=== PATIENT | female | born 1990 | race Hispanic/Latino ===

== ENCOUNTER 2022-02-18 15:39 | Emergency (ER) | payer OTHER ==
[~2022-02-18] VITALS: Ht 165.1 cm; Wt 70.3 kg
[2022-02-18 15:49] VITALS: BP 129/70
[2022-02-18] MEDS ORDERED: IOHEXOL 350 MG/ML 100ML INFUS..BTL IV ONE (16:11)
[2022-02-18] MEDS ORDERED: LIDOCAINE HCL MPF 1% 5ML VIAL ONE (16:28)
== END 2022-02-18 17:08 | disposition left against medical advice (07) ==
LOC: EDH 15:39
DX: S81.811A Laceration without foreign body, right lower leg, initial encounter (principal); Z88.0 Allergy status to penicillin; X58.XXXA Exposure to other specified factors, initial encounter; Y93.89 Activity, other specified; Y92.89 Other specified places as the place of occurrence of the external cause; Y99.8 Other external cause status
CPT/HCPCS: 12002; 99282; J3490; Q9967